=== PATIENT | female | born 1980 | race African-American/Black ===

== ENCOUNTER 2019-12-16 18:07 | Emergency (ER) | payer BC, SELFPAY ==
--- NOTE | 2019-12-16 | XR_ITS ---
EXAMINATION: XR ABDOMEN KUB CLINICAL INDICATION: Constipation COMPARISON: Upper GI 07/30/2017 TECHNIQUE: AP view of the abdomen. FINDINGS: The bowel gas pattern is normal with no evidence of ileus or obstruction. Gas and stool are seen in the colon. A small amount of air is present in small bowel. Multiple surgical clips present in the left upper quadrant. No unusual soft tissue calcifications are noted. The bones are unremarkable. XR/XR KUB IMPRESSION: Unremarkable examination.
[2019-12-16 19:15] VITALS: BP 138/65; PULSE 74; RESP 18; TEMP 37.1; O2SAT 99; BMI 26.6
[2019-12-16 19:58] LABS: UPreg QC Valid YES; Urine Pregnancy NEGATIVE (NEGATIVE)
--- NOTE | 2019-12-16 22:23 | CT_ITS ---
EXAMINATION: CT ABDOMEN AND PELVIS WITH CONTRAST CLINICAL INFORMATION: Constipation. Status post bariatric surgery. COMPARISON: None TECHNIQUE: Multidetector volumetric images were obtained from the superior aspect of the liver through the pubic symphysis following administration 85 mL ofOmnipaque 350 intravenous contrast. Sagittal and coronal reformatted images were obtained on the technologist's workstation. Oral contrast: No This CT examination was performed using dose optimization techniques as appropriate, variously including the following: *Automated exposure control *Adjustment of mA and/or kV according to patient size (this includes techniques or standardized protocols for targeted exams where dose is matched to indication/reason for exam; i.e. extremities or head) *Use of iterative reconstruction technique DLP: 672 mGy-cm FINDINGS: LUNG BASES: The visualized lung bases are unremarkable. LIVER, GALLBLADDER, AND BILIARY TREE: The liver is normal in size, shape, and attenuation. No focal hepatic lesion or biliary ductal dilatation is present. The gallbladder is unremarkable with no evidence of radiopaque gallstones, gallbladder wall thickening, or obvious pericholecystic inflammatory changes. PANCREAS: Unremarkable. SPLEEN: Unremarkable. ADRENAL GLANDS: Unremarkable. KIDNEYS AND URETERS: The kidneys are normal in size, shape, and attenuation. No hydronephrosis, hydroureter, or calculi seen. No perinephric stranding. BLADDER: Unremarkable. GASTROINTESTINAL TRACT: Status post Alessandro-en-Y gastric bypass. There appears to be focal short intussusception at the jejunojejunal anastomosis, series 3 image 28 and series 5 image 46. There is no obstruction. There is a normal appendix. No colonic wall thickening or acute inflammatory change. No significant abnormal colonic stool burden. ABDOMINAL WALL: No significant hernia is appreciated. LYMPH NODES: Normal. VASCULAR: Normal caliber aorta. Circumaortic left renal vein. PELVIC VISCERA: The uterus and adnexa are unremarkable. OSSEOUS STRUCTURES: No acute or suspicious osseous abnormality. Mild degenerative changes in the hips. CT/CT abdomen pelvis w con IMPRESSION: Status post Alessandro-en-Y gastric bypass. There is a small short segment intussusception at the jejunojejunal anastomosis. No obstruction. No inflammatory changes in the abdomen or pelvis.
--- NOTE | 2019-12-16 22:25 | ED_ITS ---
HPI - Abdominal Pain General Chief Complaint: General Medical Stated Complaint: constipation Time Seen by Provider: 12/16/19 22:23 Source: patient Mode of arrival: ambulatory Limitations: no limitations History of Present Illness MD elicited complaint: other (constipation) Pertinent past history: other (bariatric surgery 12 years ago revised 2 years ago 4 months post op panniculectomy) Onset (ago): day(s) (10) Pain Consistency: now resolved Location: periumbilical Severity: mild Quality: dull Radiation: none Migration to: no migration Exacerbating factors: nothing Relieving factors: nothing Context: other (denies dietary changes but might not drinking enough water) Associated symptoms: constipation Treatments prior to arrival: other (tried some OTC laxative unsure of name, last night one watery stool) Related Data Previous Rx's Medication Instructions Recorded docusate sodium [Colace] 100 mg PO BID PRN #20 cap 12/17/19 sennosides [senna] 8.6 mg PO BEDTIME PRN #30 cap 12/17/19 Allergies Allergy/AdvReac Type Severity Reaction Status Date / Time amoxicillin [AMOXICILLIN] Allergy Unknown RASH Verified 12/16/19 19:14 Review of Systems Review of Systems Constitutional : No Weight loss, No Fever, No Chills ENT/Mouth : No sore throat, No Rhinorrhea Eyes: No Swelling, No Redness Cardiovascular : No Chest Pain, No SOB, NoEdema Respiratory : No Cough, No Sputum, No Wheezing Gastrointestinal : no Nausea, no Vomiting, noDiarrhea, positive abdominal Pain, No Hematochezia, No Melena, positive constipation Genitourinary : No Dysuria, No Urinary Frequency, No Hematuria, No Urgency Musculoskeletal : No joint pain, No Myalgias, No Joint Swelling Skin : No Skin Lesions, No rash Neuro : No Weakness, No Numbness, No Dizziness, No Headache Psych : No Anxiety/Panic, No Depression All other systems reviewed and are negative. Physical Exam Vital Signs: Vital Signs: Vital Signs Temp Pulse Resp BP Pulse Ox 12/16/19 22:28 98.3 F 84 18 127/62 100 12/16/19 19:15 98.7 F 74 18 138/65 99 Body Mass Index 26.6 Appearance: Alert. Oriented X3. No acute distress. Eyes: Pupils equal, round and reactive to light. ENT: Pharynx normal. Neck: Normal inspection. Neck supple. CVS: Normal heart rate and rhythm. Pulses normal. Respiratory: No respiratory distress. Breath sounds normal. Abdomen: Soft and mild periumbilical ttp, no rebound/guarding Skin: Skin warm and dry. Normal skin color. Normal skin turgor. Extremities: No lower extremity edema. No calf ttp Neuro: Oriented X 3. No motor deficit. No sensory deficit. Course Course Course Narrative: call to bariatric surgery given intussusception 1222am 1241 call back from [facility] - will call back with final reccs once reviewed images after discussion with [facility] and Dr. Mensah review of presentation, labs, CT scan - common finding that happens after surgery given no pain stable for DC okay to send home with tom and merlin they will call her in AM MDM - Abdominal Pain MDM Narrative Medical decision making narrative: 39 yo female s/p gastric bypass 12 years ago, revised 2 years ago, 4 months post op tummy tuck here with constipation x 10 days, + flatus, some small stools, very mild R sided periumbilical ttp but no mass felt, unsure if she has been drinking enough water, at this time given surgeries will obtain imaging for hernia/obstruction/constipation, 2L of IVF to hydrate, dispo per results and findings. Lab Data Result diagrams: 12/16/19 22:38 12/16/19 22:38 Labs: Lab Results 12/16/19 12/16/19 12/16/19 Range/Units 19:46 22:38 22:38 WBC 5.1 (4.8-10.8) X10*3/uL RBC 4.68 (4.20-5.50) X10*6/uL Hgb 12.9 (12.0-16.0) g/dl Hct 41.0 (37-47) % MCV 87.6 (80-98) fL MCH 27.6 (27.0-33.0) pg MCHC 31.5 (31.0-35.0) g/dl RDW 13.5 (11.0-16.0) % Plt Count 297 (160-400) X10*3/uL MPV 10.0 (9.4-12.3) fL Immature Gran % (Auto) 0.2 (0.0-0.4) % Neut % (Auto) 52.9 (45-73) % Lymph % (Auto) 35.6 (20-40) % [place] % (Auto) 8.3 (2-11) % Eos % (Auto) 2.4 (0-4) % Baso % (Auto) 0.6 (0-2) % Lymph # (Auto) 1.8 (1.2-4.9) X10*3/uL [place] # (Auto) 0.4 (0.1-1.2) X10*3/uL Eos # (Auto) 0.1 (0.0-0.4) X10*3/uL Baso # (Auto) 0.0 (0.0-0.2) X10*3/uL Abs Immat Gran (auto) 0.01 (0.00-0.03) X10*3/uL Absolute Neuts (auto) 2.7 (2.0-8.3) X10*3/uL Absolute Nucleated RBC 0.000 (0.0-0.012) X10*3/uL Nucleated RBC % (auto) 0.0 (0.0-0.2) /100WBC Hold Blue Top SEE NOTE Sodium (135-145) mmol/L Potassium (3.3-5.1) mmol/l Chloride (96-108) mmol/L Carbon Dioxide (22-29) mmol/L Anion Gap (12-20) BUN (9-16) mg/dL Creatinine (0.5-1.4) mg/dL Estim Creat Clear Calc Estimated GFR Random Glucose (60-115) mg/dL Calcium (8.4-10.2) mg/dL Magnesium (1.6-2.6) mg/dL Total Bilirubin (0.0-1.0) mg/dL Direct Bilirubin (0.0-0.5) mg/dL AST (5-31) U/L ALT (0-31) U/L Alkaline Phosphatase (39-117) U/L Total Protein (6.5-8.0) g/dL Albumin (3.5-5.0) g/dL Lipase (8-78) U/L Urine Test NEGATIVE (NEGATIVE) 12/16/19 Range/Units 22:38 WBC (4.8-10.8) X10*3/uL RBC (4.20-5.50) X10*6/uL Hgb (12.0-16.0) g/dl Hct (37-47) % MCV (80-98) fL MCH (27.0-33.0) pg MCHC (31.0-35.0) g/dl RDW (11.0-16.0) % Plt Count (160-400) X10*3/uL MPV (9.4-12.3) fL Immature Gran % (Auto) (0.0-0.4) % Neut % (Auto) (45-73) % Lymph % (Auto) (20-40) % [place] % (Auto) (2-11) % Eos % (Auto) (0-4) % Baso % (Auto) (0-2) % Lymph # (Auto) (1.2-4.9) X10*3/uL [place] # (Auto) (0.1-1.2) X10*3/uL Eos # (Auto) (0.0-0.4) X10*3/uL Baso # (Auto) (0.0-0.2) X10*3/uL Abs Immat Gran (auto) (0.00-0.03) X10*3/uL Absolute Neuts (auto) (2.0-8.3) X10*3/uL Absolute Nucleated RBC (0.0-0.012) X10*3/uL Nucleated RBC % (auto) (0.0-0.2) /100WBC Hold Blue Top Sodium 137 (135-145) mmol/L Potassium 3.9 (3.3-5.1) mmol/l Chloride 102 (96-108) mmol/L Carbon Dioxide 26 (22-29) mmol/L Anion Gap 13 (12-20) BUN 12 (9-16) mg/dL Creatinine 0.65 (0.5-1.4) mg/dL Estim Creat Clear Calc 113.6 Estimated GFR > 60 Random Glucose 158 H (60-115) mg/dL Calcium 8.2 L (8.4-10.2) mg/dL Magnesium 2.0 (1.6-2.6) mg/dL Total Bilirubin 0.4 (0.0-1.0) mg/dL Direct Bilirubin 0.2 (0.0-0.5) mg/dL AST 41 H (5-31) U/L ALT 40 H (0-31) U/L Alkaline Phosphatase 89 (39-117) U/L Total Protein 6.8 (6.5-8.0) g/dL Albumin 3.7 (3.5-5.0) g/dL Lipase 41 (8-78) U/L Urine Test (NEGATIVE) Discharge Plan Discharge Clinical Impression: Constipation Qualifiers: Constipation type: unspecified constipation type Qualified Code(s): K59.00 - Constipation, unspecified Patient Disposition: Home, Self-Care Instructions: Constipation (ED) Prescriptions: New senna 8.6 mg capsule 8.6 mg PO BEDTIME PRN (Reason: constipation) Qty: 30 RF: 0 docusate sodium [Colace] 100 mg capsule 100 mg PO BID PRN (Reason: constipation) Qty: 20 RF: 0 Referrals: Aleksandra Alejandre PA-C [Physician Junior Project Coordinator] - 1 day (she will call you in the morning) Stand Alone Forms: Work/School Release [facility] Past Medical History Medical History (Updated 12/17/19 @ 00:53 by Remedios Longoria DO) Complications of gastric bypass surgery Surgical History (Updated 12/16/19 @ 22:27 by Remedios Longoria DO) H/O gastric bypass S/P panniculectomy Social History Social History (Updated 12/16/19 @ 22:27 by Remedios Longoria DO) Alcohol intake: never Smoking Status: Never smoker Use of substances other than those prescribed or required for medical reasons: No Advance Directives: No Advance Directives Information Provided: Yes
[2019-12-16 22:28] VITALS: BP 127/62; PULSE 84; RESP 18; TEMP 36.8; O2SAT 100
[2019-12-16] MEDS: 0.9 % Sodium Chloride 1,000 ML 999 ML IVCONT (22:39)
--- NOTE | 2019-12-16 22:44 | PC.NURSE ---
patient a&ox3, vss, iv inserted, labs drawn, ivf hung per order, pt states she has a 1/10 abd tenderness upon palp, patient has + [id number], pt awaiting radiology, will continue to monitor.
[2019-12-16 22:48] LABS: MANUAL DIFF FLAG NO
[2019-12-16 22:49] LABS: Basophils Percent Auto 0.6 % (0-2); Eosinophils Absolute Auto 0.1 X10*3/uL (0.0-0.4); Eosinophils Percent Auto 2.4 % (0-4); Hemoglobin 12.9 g/dl (12.0-16.0); Imm Gran Abs Auto 0.01 X10*3/uL (0.00-0.03); Imm Gran Pct Auto 0.2 % (0.0-0.4); Lymphocytes Absolute Auto 1.8 X10*3/uL (1.2-4.9); Lymphocytes Percent Auto 35.6 % (20-40); Mean Corpuscular HGB Conc 31.5 g/dl (31.0-35.0); Mean Corpuscular Hemoglobin 27.6 pg (27.0-33.0); Mean Corpuscular Volume 87.6 fL (80-98); Monocytes Absolute Auto 0.4 X10*3/uL (0.1-1.2); Monocytes Percent Auto 8.3 % (2-11); Neutrophils Absolute Auto 2.7 X10*3/uL (2.0-8.3); Neutrophils Percent Auto 52.9 % (45-73); Platelet Count 297 X10*3/uL (160-400); Red Blood Count 4.68 X10*6/uL (4.20-5.50); Red Cell Distribution Width 13.5 % (11.0-16.0); White Blood Count 5.1 X10*3/uL (4.8-10.8)
[2019-12-16 23:26] LABS: Alanine Aminotransferase 40 U/L (0-31); Albumin Level 3.7 g/dL (3.5-5.0); Alkaline Phosphatase 89 U/L (39-117); Anion Gap 13 (12-20); Aspartate Amino Transferase 41 U/L (5-31); Bilirubin Direct 0.2 mg/dL (0.0-0.5); Bilirubin Total 0.4 mg/dL (0.0-1.0); Blood Urea Nitrogen 12 mg/dL (9-16); Calcium 8.2 mg/dL (8.4-10.2); Carbon Dioxide 26 mmol/L (22-29); Chloride 102 mmol/L (96-108); Creatinine Clr Calc Pharmacy 113.6; Estimated Glomerular Filt Rate > 60; Glucose Random 158 mg/dL (60-115); Lipase 41 U/L (8-78); Potassium 3.9 mmol/l (3.3-5.1); Sodium 137 mmol/L (135-145); Total Protein 6.8 g/dL (6.5-8.0)
[2019-12-17] VITALS: RESP 16; O2SAT 98
[2019-12-17] MEDS: iohexoL 350 MG/ML 100 ML INFUS..BTL IV (00:05)
== END 2019-12-17 01:24 | disposition home or self-care (01) ==
PROVIDERS: Internal Medicine; Emergency Provider Emergency Medicine; PCP Pediatrics
DX: K59.00 Constipation, unspecified (principal); Z98.84 Bariatric surgery status; Z79.899 Other long term (current) drug therapy
CPT/HCPCS: 36415; 74018; 74177; 80048; 80076; 81025; 83690; 83735; 85025; 96360; 99284; Q9967

== ENCOUNTER 2019-12-21 12:25 | Outpatient (REF) | payer BC, SELFPAY ==
--- NOTE | 2019-12-21 12:33 | CT_ITS ---
EXAMINATION: CT ABDOMEN AND PELVIS WITH CONTRAST CLINICAL INFORMATION: Intussusception. COMPARISON: None TECHNIQUE: Multidetector volumetric images were obtained from the superior aspect of the liver through the pubic symphysis following administration 85 mL of Omnipaque 350 intravenous contrast. Sagittal and coronal reformatted images were obtained on the technologist's workstation. Oral contrast: No This CT examination was performed using dose optimization techniques as appropriate, variously including the following: *Automated exposure control *Adjustment of mA and/or kV according to patient size (this includes techniques or standardized protocols for targeted exams where dose is matched to indication/reason for exam; i.e. extremities or head) *Use of iterative reconstruction technique DLP: 373 mGy-cm FINDINGS: LUNG BASES: The visualized lung bases are unremarkable. LIVER, GALLBLADDER, AND BILIARY TREE: The liver is normal in size, shape, and attenuation. There is a punctate hypodensity along the posterior right hepatic lobe adjacent to diaphragm image 16/3. It is too small to correctly characterize. No biliary ductal dilatation is present. The gallbladder is unremarkable with no evidence of radiopaque gallstones, gallbladder wall thickening, or obvious pericholecystic inflammatory changes. PANCREAS: The pancreas is unremarkable. SPLEEN: Unremarkable. ADRENAL GLANDS: Unremarkable. KIDNEYS AND URETERS: The kidneys are normal in size, shape, and attenuation. No hydronephrosis, hydroureter, or calculi seen. No perinephric stranding. BLADDER: Unremarkable. GASTROINTESTINAL TRACT: There is moderate scattered stool and gas seen throughout the colon without any significant distention. There is oral contrast seen in small bowel loops and appears normal caliber. There is no suspicion for an intussusception or volvulus. No obstruction seen. There are postgastrectomy bypassed changes visualized in the left upper quadrant. Appendix is not visualized. ABDOMINAL WALL: No significant hernia is appreciated. LYMPH NODES: Normal. VASCULAR: Unremarkable. PELVIC VISCERA: Uterus is midline and appears unremarkable.. OSSEOUS STRUCTURES: Grade 1 anterolisthesis L4 over L5. Rest of the vertebral alignment is normal. No lytic process seen. CT/CT abdomen pelvis w con IMPRESSION: Moderate to significant constipation. No evidence of volvulus.
[2019-12-21] MEDS: iohexoL 350 MG/ML 100 ML INFUS..BTL IV (15:29)
== END 2019-12-21 12:26 | disposition home or self-care (01) ==
LOC: HO.CT 12:25
PROVIDERS: PCP Pediatrics; Visit Provider Surgery
DX: R10.11 Right upper quadrant pain (principal); K56.1 Intussusception; Z98.84 Bariatric surgery status
CPT/HCPCS: 74177; Q9967

== ENCOUNTER → 2020-03-22 08:47 | Outpatient (BNVA) | payer BC, SELFPAY | PROVIDERS: PCP Pediatrics; Visit Provider Physician Assistant ==